=== PATIENT | female | born 1985 | race Caucasian/White ===

== ENCOUNTER → 2016-11-12 | Outpatient (CLI) | payer OTHER ==
[~2016-11-12] MED LIST: HYDR-3138 PO
== END | disposition home or self-care (01) ==
LOC: RAD 16:31
PROVIDERS: ATTEND Internal Medicine Cardiovascular Disease
DX: I72.4 Aneurysm of artery of lower extremity (principal)

== ENCOUNTER 2017-01-27 10:34 | Emergency (ER) | payer OTHER ==
[~2017-01-27] VITALS: Ht 149.9 cm; Wt 65.0 kg
[2017-01-27] MEDS ORDERED: SODIUM CHLORIDE FLUSH 10ML SYR IVF ONE (11:00)
[2017-01-27 11:21] LABS: ASPARTATE AMINO TRANSFERASE 10 U/L (15-37); BLOOD UREA NITROGEN 9 mg/dL (7-18)
[2017-01-27 11:27] LABS: IS PT STATUS REG ER OR PRE ER? YES
[2017-01-27] MEDS ORDERED: ASPI-496 PO (11:54)
[2017-01-27] MEDS ORDERED: CLOP75TA PO (11:54)
[2017-01-27] MEDS ORDERED: CLIN300C93 PO (11:54)
[2017-01-27] MEDS ORDERED: OMNIPAQUE 350 MG/ML, 100ML BOTTLE ONE (13:56)
[2017-01-27] MEDS ORDERED: NITROGLYCERIN SINGLE TAB 0.4 MG SL ONE (14:30)
[2017-01-27] MEDS ORDERED: KETOROLAC 30 MG/1 ML IVPush ONE (14:30)
[2017-01-27] MEDS ORDERED: KETOROLAC 30 MG/1 ML ONE (15:19)
[2017-01-27 15:25] VITALS: BP 103/70
== END 2017-01-27 15:31 | disposition home or self-care (01) ==
LOC: ED 11:32
DX: J15.9 Unspecified bacterial pneumonia (principal); R07.2 Precordial pain; R07.89 Other chest pain
CPT/HCPCS: 36415; 71010; 71275; 80053; 83880; 84484; 84703; 85025; 85379; 85610; 85730; 93005; 93306; 96374; 99285; J1885; Q9967

== ENCOUNTER → 2017-02-18 | Outpatient (CLI) | payer OTHER ==
[~2017-02-18] MED LIST changes: +ASPI-496 PO; +CLIN300C93 PO; +CLOP75TA PO
== END | disposition home or self-care (01) ==
LOC: RAD 09:44
PROVIDERS: ATTEND Internal Medicine Cardiovascular Disease
DX: R07.89 Other chest pain (principal)
CPT/HCPCS: 78452; 93017; A9502

== ENCOUNTER 2017-05-25 06:50 | Emergency (ER) | payer OTHER ==
[~2017-05-25] VITALS: Ht 154.9 cm; Wt 68.9 kg
[~2017-05-25 06:50] MED LIST changes: +CLIN300C8 PO; -CLIN300C93 PO; -HYDR-3138 PO; +HYDR-3237 PO
[2017-05-25] MEDS ORDERED: ALBUTEROL/IPRATROPIUM 2.5MG/0.5MG, 3 ML NPPB ONE (07:30)
[2017-05-25] MEDS ORDERED: ALBUTEROL/IPRATROPIUM 2.5MG/0.5MG, 3 ML ONE (07:33)
[2017-05-25 08:48] VITALS: BP 110/73
== END 2017-05-25 08:50 | disposition home or self-care (01) ==
LOC: ED 07:23
DX: J20.9 Acute bronchitis, unspecified (principal)
CPT/HCPCS: 71020; 93005; 94640; 99284; J7620

== ENCOUNTER → 2017-08-05 | Outpatient (CLI) | payer OTHER | END | disposition home or self-care (01) | LOC: CFH 16:29 | PROVIDERS: ATTEND Family Medicine | DX: H53.8 Other visual disturbances (principal) | CPT/HCPCS: 93880 ==

== ENCOUNTER → 2018-10-02 | Outpatient (CLI) | payer OTHER ==
[~2018-10-02] MED LIST changes: +GADOBUTROL 7.5 MMOL/7.5 ML PFS ONE
== END | disposition home or self-care (01) ==
LOC: CFH 08:16
PROVIDERS: ATTEND Psychiatry & Neurology Neurology
DX: H53.8 Other visual disturbances (principal)
CPT/HCPCS: 70553; A9585

== ENCOUNTER 2019-09-18 15:10 | Emergency (ER) | payer OTHER ==
[~2019-09-18] VITALS: Ht 149.9 cm; Wt 71.4 kg
[~2019-09-18 15:10] MED LIST changes: -GADOBUTROL 7.5 MMOL/7.5 ML PFS ONE
[2019-09-18 15:24] VITALS: BP 133/71
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
--- NOTE | 2019-09-18 17:01 | NUR ---
Patient/Caregiver given discharge instructions and they have confirmed that they understand the instructions. Patient ambulatory with steady gait.
== END 2019-09-18 17:08 | disposition home or self-care (01) ==
LOC: ED 17:00
DX: S16.1XXA Strain of muscle, fascia and tendon at neck level, initial encounter (principal); S29.012A Strain of muscle and tendon of back wall of thorax, initial encounter; V49.49XA Driver injured in collision with other motor vehicles in traffic accident, initial encounter; Y93.89 Activity, other specified; Y92.410 Unspecified street and highway as the place of occurrence of the external cause; Y99.8 Other external cause status
CPT/HCPCS: 72072; 72110; 72125; 99284

== ENCOUNTER 2020-08-27 13:35 | Emergency (ER) | payer OTHER ==
[~2020-08-27] VITALS: Ht 149.9 cm; Wt 71.0 kg
[~2020-08-27 13:35] MED LIST changes: -CLIN300C8 PO; +CLIN300C9 PO
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
[2020-08-27 14:30] VITALS: BP 113/63
--- NOTE | 2020-08-27 14:33 | NUR ---
DR FLOREZ AT BS
--- NOTE | 2020-08-27 14:40 | NUR ---
PT TO BE DC'D. AWAITING DC DOCUMENTS
== END 2020-08-27 15:00 | disposition home or self-care (01) ==
LOC: ED 14:19
DX: G43.909 Migraine, unspecified, not intractable, without status migrainosus (principal); H53.8 Other visual disturbances
CPT/HCPCS: 99283

== ENCOUNTER → 2020-11-11 | Outpatient (CLI) | payer OTHER | END | disposition home or self-care (01) | LOC: RAD 09:17 → EDSTATUS 09:45 | PROVIDERS: ATTEND Psychiatry & Neurology Neurology | DX: I72.0 Aneurysm of carotid artery (principal); Z84.89 Family history of other specified conditions | CPT/HCPCS: 70544 ==

== ENCOUNTER → 2021-02-11 | Outpatient (CLI) | payer OTHER | END | disposition home or self-care (01) | LOC: CFH 06:57 | PROVIDERS: ATTEND Internal Medicine Cardiovascular Disease | DX: I36.1 Nonrheumatic tricuspid (valve) insufficiency (principal); Z87.74 Personal history of (corrected) congenital malformations of heart and circulatory system | CPT/HCPCS: 93306 ==

== ENCOUNTER 2021-05-01 22:22 | Emergency (ER) | payer OTHER ==
[~2021-05-01] VITALS: Ht 149.9 cm; Wt 72.4 kg
[2021-05-01 22:28] VITALS: BP 141/92
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
[2021-05-01] MEDS ORDERED: SILVER NITRATE STICK TP ONE (23:45)
[2021-05-01] MEDS ORDERED: PHENYLEPHRINE NASAL 1%, 15ML SPRAY ONE (23:46)
--- NOTE | 2021-05-02 | NUR ---
F/U AND D/C INSTRUCTIONS GIVEN TO PT AND SHE V/U. PT AMBULATED TO DISCHARGE DESK.
== END 2021-05-02 00:01 | disposition home or self-care (01) ==
LOC: ED 23:00
DX: R04.0 Epistaxis (principal); G43.909 Migraine, unspecified, not intractable, without status migrainosus
CPT/HCPCS: 30901; 99284

== ENCOUNTER 2021-05-23 01:55 | Emergency (ER) | payer OTHER ==
[~2021-05-23] VITALS: Ht 149.9 cm; Wt 71.0 kg
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
[2021-05-23] MEDS ORDERED: LIDOCAINE 1%-EPI 1:100K, 20ML ONE (02:28)
[2021-05-23] MEDS ORDERED: OXYMETAZOLINE NASAL SPRAY 0.05%,30ML ONE (02:28)
[2021-05-23] MEDS ORDERED: OXYMETAZOLINE NASAL SPRAY 0.05%,30ML NAS ONE (02:30)
[2021-05-23] MEDS ORDERED: LIDOCAINE 1%-EPI 1:100K, 20ML INFIL ONE (02:30)
--- NOTE | 2021-05-23 02:43 | NUR ---
YARED JUST COMPLETED NOSE PROCEDURE WITH MEDICATIONS THIS NURSE PULLED.
--- NOTE | 2021-05-23 03:24 | NUR ---
break rn: pt sitting up in chair, nose no longer bleeding, states "i think i am doing a lot better". pt nad, mom at , denies additional questions or needs at this time. erp aware, wctm.
[2021-05-23 03:31] VITALS: BP 157/52
--- NOTE | 2021-05-23 03:32 | NUR ---
Patient/Caregiver given discharge instructions and they have confirmed that they understand the instructions. Patient ambulatory with steady gait. NAD, all questions answered appropriately, denies additional needs at this time. No personal belongings left in room after discharge.
== END 2021-05-23 03:35 | disposition home or self-care (01) ==
LOC: ED 02:15
DX: R04.0 Epistaxis (principal)
CPT/HCPCS: 99281